=== PATIENT | female | born 1965 | race Caucasian/White ===

== ENCOUNTER 2017-02-22 20:42 | Emergency (ER) | payer MEDICARE ==
[~2017-02-22] VITALS: Ht 160 cm; Wt 108.9 kg
--- NOTE | 2017-02-22 23:54 | Emergency Room Report ---
History of Present Illness Time Seen by [id number] Presenting Problem in Triage Pt arrived:Walked Presenting Problem:LEFT SHOULDER PAIN STARTED 2-3 DAYS AGO. PT TRIAGED FOR DECISION BUT UPON ARRIVAL TO [facility] PT ADVISES THAT SHE HAD A FISTULA PLACED IN THE LT ARM ON 02/04/17 Onset of symptoms date/time:02/20/1709/03/699 or onset unknown for:MEDICAL HX UNKNOWN Treatment Prior to Arrival: PT SENT FROM [facility] APPLICATIONS ARCHITECT Provided by:NURSE Sepsis Risk Assessment: Temp: 98.0 B/P: 143/77 MAP: 90 Pulse: 70 Resp: 20 Recent fever? N Clinical Suspician of Infection? N Mental Status: 1 - Regular (Normal Baseline) Sepsis Risk:Low Sepsis Risk Have you (or family members/close friends) recently traveled outside the [place]? N If Yes, where/when: Have you had exposure to infectious disease within the past month? N TB? Other? Specify: Source patient, RN notes reviewed, family, old records Exam Limitations no limitations Comment pt with dialysis shunt lt upper ext 02/03 and over the last 2 days has pain lt shoulder with swelling worse with cough - no rash and no hemoptysis Cardiac Chest Pain Chest pain indicative of cardiac No Timing/Duration this evening Severity moderate ALLERGIES Coded Allergies: amoxicillin (Mild, 02/22/17) latex (Mild, 02/22/17) naproxen (From ALEVE) (Mild, 02/22/17) History Medical History General CAD? No Angina: No OR: No Hypertension? Yes Hyperlipidemia? Yes CHF? No DVT? No PE? No COPD? Yes Asthma? No Anemia? No GERD? No Gastric ulcers? No GI Bleed? No Hernia? No Thyroid Problems? No Hypothyroidism? No CVA? No Seizures? No Diabetes? Yes Insulin Dependent: No Insulin Pump: No Home FSBS? Yes Renal Insuffiency? No End Stage Renal Disease? No UTI? No Stones? No BPH? No GB Disease: No Nephritic Syndrome? No Asplenia? No Hepatitis? No Sickle Cell Disease? No Arthritis? No Migraines? No Cataracts? No Glaucoma? No MRSA? No HIV? No TB? No Anxiety? No Depression? No Cancer? No More? 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 Respiratory cough, shortness of breath, denies wheezing Cardiovascular denies chest pain, denies syncope Gastrointestinal denies abdominal pain, denies diarrhea, denies vomiting Genitourinary denies: dysuria, frequency, hesitancy, hematuria. Musculoskeletal denies back pain, denies joint pain, denies neck pain Skin denies rash Psychiatric/Neurological denies seizure Comment recent fisutla lt upper ext Physical Exam Vital Signs Vital Signs Date Time Temp Pulse Resp B/P Pulse O2 O2 Flow FiO2 Ox Delivery Rate 02/23 0112 98.0 65 16 140/74 96 02/23 0045 16 02/22 2327 98.0 70 20 143/77 96 02/22 2115 98.0 71 20 129/71 96 02/22 2111 98.0 71 20 129/71 96 02/22 2050 98.0 71 20 129/71 96 - WBC >12,000 or <4,000 or 10% bands? 2 or more SIRS Criteria Met? B/P:143/77 MAP:90 Creatinine >2.0? UA output<0.5ml/kg/hr for 2 hrs? Platelet count >100,000? Lactate >2.0mmol/1? INR >1.2 or PTT > than 60 sec? Evidence of Organ Dysfunction? Provider documented clinical suspician of infection? N Sepsis Criteria Count: 1 Sepsis Risk: Low Sepsis Risk General Appearance no apparent distress Eye Exam - bilateral eye PERRL, bilateral eye EOMI Ear, Nose, Throat normal ENT inspection Neck supple Respiratory Status No: respiratory distress. Lung Sounds bilateral: rhonchi, wheezing. 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 No Results/Orders Laboratory Tests 02/23/17 0004: Sodium 141, Potassium 3.9, Chloride 106, Carbon Dioxide 23, BUN 41 H, Creatinine 3.6 H, Estimated Creat Clear 31 L, Estimated GFR (MDRD) 13 *L, Glucose 131 H, Calcium 8.5, Total Bilirubin 0.2, AST 22, ALT 39, Alkaline Phosphatase 94, Troponin I < 0.02, Total Protein 7.7, Albumin 3.3 L, Globulin 4.4 H, Albumin/Globulin Ratio 0.8 L, D-Dimer 1060 *H, WBC 10.1, RBC 3.92 L, Hgb 11.6 L, Hct 37.0, MCV 94.4, RDW 13.5, Plt Count 395, MPV 7.6, Gran % 65.5, Gran # 6.6, Lymphocytes % 23.6, Monocytes % 6.0, Eosinophils % 4.4, Basophils % 0.6, Lymphocytes # 2.4, Monocytes # 0.6, Eosinophils # 0.4, Basophils # 0.1, PUBS MCHC 31.4 L, MCH 29.6 Current Medication Orders Sig/Lisandro Start time Last Medication Dose Route Stop Time Status Admin Acetaminophen/ 1 RANDALL ONCE ONE 02/23 115 DC 02/23 Codeine Phosphate PO 02/23 Acetaminophen/ 0 .STK-MED ONE 02/23 115 DC Codeine Phosphate PO Enoxaparin Sodium 100 MG ONCE ONE 02/23 115 DC 02/23 SC 02/23 Enoxaparin Sodium 0 .STK-MED ONE 02/23 115 DC SC Albuterol 0 .STK-MED ONE 02/23 46 DC INH Albuterol 2.5 MG ONCE ONE 02/23 45 DC 02/23 INH 02/23 Hydrocodone Bitart/ 1 TAB ONCE ONE 02/23 45 DC 02/23 Acetaminophen PO 02/23 Hydrocodone Bitart/ 0 .STK-MED ONE 02/23 45 DC Acetaminophen PO Orders Procedure Date/time Status RT REQUEST ALBUTEROL NEB 02/23 42 Active 12 LEAD EKG-RADHA (INITIAL) 02/22 2354 Active ELECTROCARDIOGRAM REQUEST 02/22 2354 Active CHEST(2 VIEWS-NOT PORTABLE) 10/06 2354 Active TROPONIN I 02/22 2354 Complete D-DIMER 02/22 2354 Complete COMPLETE METABOLIC PANEL 02/22 2354 Complete CBC WITH AUTO DIFF 02/22 2354 Complete [id number] VIEWS 02/22 2121 Active CM/EKG CM/box loader Rhythm Normal Sinus Rhythm EKG non-spec. ST/Twave chgs XRAY/CT/US XRAY/CT/US XRAY chest XR interpretation by reviewed by me Xray Results abnormal (chronic changes) Departure Departure Time of Disposition 0111 Disposition DC Home or Self Care(routine) Clinical Impression Primary Impression: Upper extremity pain Qualifiers: Laterality: left Qualified Code: M79.602 - Pain in left arm Secondary Impressions: Elevated d-dimer, ESRD (end stage renal disease) Condition STABLE Patient Instructions Chronic Renal Failure Additional Instructions will get doppler in am and see pcp for follow up Discharge Counseling Counseled pt/family regarding diagnosis, test results, medications/RX, follow up needs ED Critical Care Critical Care No at 0124
--- NOTE | 2017-02-22 23:54 | Emergency Room Report ---
History of Present Illness Time Seen by [id number] Presenting Problem in Triage Pt arrived:Walked Presenting Problem:LEFT SHOULDER PAIN STARTED 2-3 DAYS AGO. 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 N Clinical Suspician of Infection? N Mental Status: 1 - Regular (Normal Baseline) Sepsis Risk:Low Sepsis Risk Have you (or family members/close friends) recently traveled outside the [place]? N If Yes, where/when: Have you had exposure to infectious disease within the past month? N TB? Other? Specify: Source patient, RN notes reviewed, family, old records Exam Limitations no limitations Comment pt with dialysis shunt lt upper ext 02/03 and over the last 2 days has pain lt shoulder with swelling worse with cough - no rash and no hemoptysis Cardiac Chest Pain Chest pain indicative of cardiac No Timing/Duration this evening Severity moderate ALLERGIES Coded Allergies: amoxicillin (Mild, 02/22/17) latex (Mild, 02/22/17) naproxen (From ALEVE) (Mild, 02/22/17) History Medical History General CAD? No Angina: No MS: No Hypertension? Yes Hyperlipidemia? Yes CHF? No DVT? No PE? No COPD? Yes Asthma? No Anemia? No GERD? No Gastric ulcers? No GI Bleed? No Hernia? No Thyroid Problems? No Hypothyroidism? No CVA? No Seizures? No Diabetes? Yes Insulin Dependent: No Insulin Pump: No Home FSBS? Yes Renal Insuffiency? No End Stage Renal Disease? No UTI? No Stones? No BPH? No GB Disease: No Nephritic Syndrome? No Asplenia? No Hepatitis? No Sickle Cell Disease? No Arthritis? No Migraines? No Cataracts? No Glaucoma? No MRSA? No HIV? No TB? No Anxiety? No Depression? No Cancer? No More? 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 Respiratory cough, shortness of breath, denies wheezing Cardiovascular denies chest pain, denies syncope Gastrointestinal denies abdominal pain, denies diarrhea, denies vomiting Genitourinary denies: dysuria, frequency, hesitancy, hematuria. Musculoskeletal denies back pain, denies joint pain, denies neck pain Skin denies rash Psychiatric/Neurological denies seizure Comment recent fisutla lt upper ext Physical Exam Vital Signs Vital Signs Date Time Temp Pulse Resp B/P Pulse O2 O2 Flow FiO2 Ox Delivery Rate 02/23 0112 98.0 65 16 140/74 96 02/23 0045 16 02/22 2327 98.0 70 20 143/77 96 02/22 2115 98.0 71 20 129/71 96 02/22 2111 98.0 71 20 129/71 96 02/22 2050 98.0 71 20 129/71 96 - WBC >12,000 or <4,000 or 10% bands? 2 or more SIRS Criteria Met? B/P:143/77 MAP:90 Creatinine >2.0? UA output<0.5ml/kg/hr for 2 hrs? Platelet count >100,000? Lactate >2.0mmol/1? INR >1.2 or PTT > than 60 sec? Evidence of Organ Dysfunction? Provider documented clinical suspician of infection? N Sepsis Criteria Count: 1 Sepsis Risk: Low Sepsis Risk General Appearance no apparent distress Eye Exam - bilateral eye PERRL, bilateral eye EOMI Ear, Nose, Throat normal ENT inspection Neck supple Respiratory Status No: respiratory distress. Lung Sounds bilateral: rhonchi, wheezing. 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 No Results/Orders Laboratory Tests 02/23/17 0004: Sodium 141, Potassium 3.9, Chloride 106, Carbon Dioxide 23, BUN 41 H, Creatinine 3.6 H, Estimated Creat Clear 31 L, Estimated GFR (MDRD) 13 *L, Glucose 131 H, Calcium 8.5, Total Bilirubin 0.2, AST 22, ALT 39, Alkaline Phosphatase 94, Troponin I < 0.02, Total Protein 7.7, Albumin 3.3 L, Globulin 4.4 H, Albumin/Globulin Ratio 0.8 L, D-Dimer 1060 *H, WBC 10.1, RBC 3.92 L, Hgb 11.6 L, Hct 37.0, MCV 94.4, RDW 13.5, Plt Count 395, MPV 7.6, Gran % 65.5, Gran # 6.6, Lymphocytes % 23.6, Monocytes % 6.0, Eosinophils % 4.4, Basophils % 0.6, Lymphocytes # 2.4, Monocytes # 0.6, Eosinophils # 0.4, Basophils # 0.1, PUBS MCHC 31.4 L, MCH 29.6 Current Medication Orders Sig/Lisandro Start time Last Medication Dose Route Stop Time Status Admin Acetaminophen/ 1 RANDALL ONCE ONE 02/23 115 DC 02/23 Codeine Phosphate PO 02/23 Acetaminophen/ 0 .STK-MED ONE 02/23 115 DC Codeine Phosphate PO Enoxaparin Sodium 100 MG ONCE ONE 02/23 115 DC 02/23 SC 02/23 Enoxaparin Sodium 0 .STK-MED ONE 02/23 115 DC SC Albuterol 0 .STK-MED ONE 02/23 46 DC INH Albuterol 2.5 MG ONCE ONE 02/23 45 DC 02/23 INH 02/23 Hydrocodone Bitart/ 1 TAB ONCE ONE 02/23 45 DC 02/23 Acetaminophen PO 02/23 Hydrocodone Bitart/ 0 .STK-MED ONE 02/23 45 DC Acetaminophen PO Orders Procedure Date/time Status RT REQUEST ALBUTEROL NEB 02/23 42 Active 12 LEAD EKG-RADHA (INITIAL) 02/22 2354 Active ELECTROCARDIOGRAM REQUEST 02/22 2354 Active CHEST(2 VIEWS-NOT PORTABLE) 10/06 2354 Active TROPONIN I 02/22 2354 Complete D-DIMER 02/22 2354 Complete COMPLETE METABOLIC PANEL 02/22 2354 Complete CBC WITH AUTO DIFF 02/22 2354 Complete [id number] VIEWS 02/22 2121 Active CM/EKG CM/shank tapper Rhythm Normal Sinus Rhythm EKG non-spec. ST/Twave chgs XRAY/CT/US XRAY/CT/US XRAY chest XR interpretation by reviewed by me Xray Results abnormal (chronic changes) Departure Departure Time of Disposition 0111 Disposition DC Home or Self Care(routine) Clinical Impression Primary Impression: Upper extremity pain Qualifiers: Laterality: left Qualified Code: M79.602 - Pain in left arm Secondary Impressions: Elevated d-dimer, ESRD (end stage renal disease) Condition STABLE Patient Instructions Chronic Renal Failure Additional Instructions will get doppler in am and see pcp for follow up Discharge Counseling Counseled pt/family regarding diagnosis, test results, medications/RX, follow up needs ED Critical Care Critical Care No at 0124
[2017-02-23 00:15] LABS: HEMOGLOBIN 11.6 g/dL (12.2-16.2); LYMPH # 2.4 K/mm3 (0.7-4.5); LYMPH % 23.6 % (10-50.0)
[2017-02-23 00:31] LABS: BUN 41 mg/dL (7-18)
[2017-02-23 00:32] LABS: GFR (ESTIMATED) 13 ML/MIN (59-)
[2017-02-23 01:29] VITALS: BP 140/74
--- NOTE | 2017-02-23 09:59 | RADIOLOGY REPORT PS360 ---
[id number] VIEWS COMPARISON: PA and lateral chest 02/23/2017 HISTORY: Left shoulder pain TECHNIQUE: 4 views left shoulder FINDINGS: The clavicle is intact. There is minor degenerative change of the AC joint with spurring superiorly. The humeral head and glenoid appear normal and there are no soft tissue calcifications. IMPRESSION: Minor degenerative change of the AC joint otherwise negative left shoulder
--- NOTE | 2017-02-23 11:23 | RADIOLOGY REPORT PS360 ---
CHEST(2 VIEWS-NOT PORTABLE) COMPARISON: None HISTORY: Smoking history, cough TECHNIQUE: PA and lateral chest FINDINGS: The lung thurston are well expanded and appear clear of infiltrate. There is minimal blunting of the left costo phrenic angle. Cardiac size is normal and the vascularity is normal. There are minor degenerative changes lower thoracic spine. IMPRESSION: Nonacute chest findings
--- OUTSIDE RECORDS SUMMARY | 2017-03-01 10:36 | External Medical Summary Rpt | CCD ---
Author Author , [facility] Organization [facility] Address Unknown Phone [email or web address] Immunization Name Date Rout CVX Reac Dose Comm Prov Is Faci e tion ent ider Refu lity Give sed n Hep 10-0 43 999 Hist H201 No H201 B, 2-20 oric adul 08 al t Info rmat ion - Sour ce Unsp ecif ied Hep 03-1 43 999 Hist H201 No H201 B, 4-20 oric adul 08 al t Info rmat ion - Sour ce Unsp ecif ied Hep 02-0 43 999 Hist H201 No H201 B, 5-20 oric adul 08 al t Info rmat ion - Sour ce Unsp ecif ied
--- OUTSIDE RECORDS SUMMARY | 2017-03-01 10:36 | External Medical Summary Rpt | CCD ---
Author Author , [facility] Organization [facility] Address Unknown Phone josé Immunization Name Date Rout CVX Reac Dose [...]
--- OUTSIDE RECORDS SUMMARY | 2017-03-01 10:38 | External Medical Summary Rpt ---
Author Author OLIVERLILLY Waterman, [employer] Address Unknown Phone Unavailable Payers Section Payer Plan Name Group ID Member ID Coverage Coverage Start End Date Date [employer] 1810 [id number] No No Claims 00 informati informati Office on in on in source source data data Results Fibrin D-dimer FEU [Mass/volume] in Platelet poor plasma Observa Value Referen Units Interpr Notes Date tion ce etation Range Fibrin 0 - 400 ng/mL High Feb 23 D-dimer alert NOTIFICAT 2016 FEU ION 12:04 AM [Mass/vol RESULT ume] in The Platelet D-Dimer poor values plasma are presented in units of mass(ng/m L) ofD-Dimer units(DDU ).This test has been FDA approved as an aid in the assessmen tand evaluatio n of suspected DIC, and thromboem bolic eventsinc luding PE and DVT. However, it does not have approvalf or cut-off values for the exclusion of these condition s. CBC W Auto Differential panel in Blood Observa Value Referen Units Interpr Notes Date ti ce etation Range Basophils 0 - 0.2 K/MM3 Normal No Feb 232016 [#/volume on in 12:04 AM ] in source Blood by data Automated count Basophils 0.1 - 2.0 % Normal No Feb 232016 leukocyte on in 12:04 AM s in source Blood by data Automated count Eosinophi 0.0 - 0.4 K/mm3 Normal No Feb 23 ls informati 2016 [#/volume on in 12:04 AM ] in source Blood by data Automated count Eosinophi 0.1 - % Normal No Feb 23 ls/100 12.0 inform2016 leukocyte on in 12:04 AM s in source Blood by data Automated count Granulocy 1.8 - 7.8 K/mm3 Normal No Feb 23 fadia inform2016 [#/volume on in 12:04 AM ] in source Blood by data Automated count Granulocy 37.0 - % Normal No Feb 23 fadia/100 80.0 2016 leukocyte on in 12:04 AM s in source Blood by data Automated count Hematocri 37.0 - % Normal No Feb 23 t [Volume 47.0 informati 2016 on in 12:04 AM Fraction] source of Blood data Hemoglobi 12.2 - g/dL Low No Feb 23 n 16.2 informati 2016 [Mass/vol on in 12:04 AM ume] in source Blood data Lymphocyt 0.7 - 4.5 K/mm3 Normal No Feb 23 es inform2016 [#/volume on in 12:04 AM ] in source Unspecifi data ed specimen by Automated count Lymphocyt 10 - 50.0 % Normal No Feb 23 es inform2016 [#/volume on in 12:04 AM ] in source Unspecifi data ed specimen by Automated count Erythrocy 27 - 31.2 pg Normal No Feb 23 te mean inform2016 corpuscul on in 12:04 AM ar source hemoglobi data n [Entitic mass] Erythrocy 31.8 - g/dl Low No Feb 23 te mean 35.4 inform2016 corpuscul on in 12:04 AM ar source hemoglobi data n concentra tion [Mass/vol ume] by Automated count Erythrocy 82.2 - fl Normal No Feb 23 te mean 97.8 informati 2016 corpuscul on in 12:04 AM ar volume source [Entitic data volume] by Automated count Monocytes 0.1 - 1.0 K/mm3 Normal No Feb 232016 [#/volume on in 12:04 AM ] in source Blood by data Automated count Monocytes 1.7 - 9.3 % Normal No Feb 23 /100 inform 2017 leukocyte on in 12:04 AM s in source Blood by data Automated count Platelet 7.4 - fl Normal No Feb 23 mean 10.4 informati 2016 volume on in 12:04 AM [Entitic source volume] data in Blood by Automated count Platelets 142 - 424 K/mm3 Normal No Feb 23 inform2016 [#/volume on in 12:04 AM ] in source Blood data Erythrocy 4.2 - 5.4 M/mm3 Low No Feb 23 fadia informati 2016 [#/volume on in 12:04 AM ] in source Amniotic data fluid Erythrocy 11.5 - % Normal No Feb 23 te 17.5 informati 2017 distribut on in 12:04 AM ion width source [Entitic data volume] by Automated count Leukocyte 4.8 - K/MM3 Normal No Oct 7 s 10.8 informati 2016 [#/volume on in 12:04 AM ] in source Blood data DIAGBDIG/C Observa Value Referen Units Interpr Notes Date tion ce etation Range TEXT \\.br\\Pa No No No No Jan 21 DIAGNOS tient : informa informa informa informa 2016 IS tion in tion in tion in ti in 10:42 [facility], source source source source AM ROBB data data data data 3 Visit Type : REG CLI\\.br \\ : [id number] Rm/Bed :\\.br\\A ge/Sex : 51/F\\.b r\\\\.br\\ Orderin g Physici an : Betina Mittal DO Tech : Maye Bragg\\.b r\\Acces irene # : [id number] Time In : 927\\.b r\\Categ ory: MAMMOGR APHY Time Out :\\.br\\_ \\.br\\\\. br\\Date : 7\\.br\\E XAMINAT ION:\\.b r\\DIAGN OSTIC DIGITAL BILAT W/CAD MIRA\\.br \\\\.br\\I NDICATI ON:\\.br \\DIAGNO STIC DIGITAL BILAT W/CAD\\. br\\\\.br \\TECHNI QUE:\\.b r\\Digit al diagnos tic MLO and CC project ions of both breasts were obtaine d.\\.br\\ \\.br\\Im ages were process ed by the iCAD (Comput er Aided Detecti on) system. \\.br\\\\. br\\KOLE ST COMPOSI TION: Pattern B scatter ed fibrogl andular densiti es\\.br\\ \\.br\\CO MPARISO N:\\.br\\ None.\\. br\\\\.br \\FINDIN GS:\\.br \\There is no definit e mammogr aphic correla te to the palpabl e abnorma lity within the right breast. \\.br\\On ly fatty tissues demonst rated deep to the skin marker at the 3 o'clock positio n within the right\\. br\\kole st. Ultraso und right breast in the same locatio n demonst rates a roughly 2.5 cm well-\\. br\\circ umscrib ed mass within the subcuta neous fat which is isoecho ic to adjacen t fatty tissue. The\\.br \\overal l appeara nce is compati ble with a lipoma. No suspici ous groups of calcifi cations or areas of\\.br\\ archite ctural distort ion are identif ied. There is no evidenc e of skin thicken ing or nipple\\ .br\\ret raction .\\.br\\\\ .br\\IMP RESSION :\\.br\\\\ .br\\\\.b r\\BI-RA DS CATEGOR Y: 2- Benign. \\.br\\\\. br\\A reminde r letter for the patient 's next exam will be sent from the [facility] and a\\.br\\l vinh explain ing the results of this exam will be sent to the patient in lay termino logy.\\. br\\\\.br \\\\.br\\ BRRLIM Observa Value Referen Units Interpr Notes Date tion ce etation Range TEXT \\.br\\Pa No No No No Feb 07 DIAGNOS tient : informa informa informa informa 2017 IS tion in tion in tion in tion in 10:39 [facility], source source source source AM ROBB data data data data 3 Visit Type : REG CLI\\.br \\ : [phone] [id number] Rm/Bed :\\.br\\A ge/Sex : 51/F\\.b r\\\\.br\\ Orderin g Physici an : Betina Mittal DO Tech : Miley Toribio\\ .br\\Acc ession # : [id number] Time In :\\.br\\C ategory : ULTRASO UND Time Out :\\.br\\_ \\.br\\\\. br\\Date : 7\\.br\\E XAMINAT ION:\\.b r\\BREAS T, RIGHT LIMITED US\\.br\\ \\.br\\IN DICATIO N:\\.br\\ RIGHT BREAST LUMP\\.b r\\\\.br\\ ADDITIO NAL HISTORY :\\.br\\\\ .br\\MILLI HNIQUE: \\.br\\Li mited sonogra phic imaging the right breast was perform ed at the site of palpabl e abnorma lity as\\.br\\ indicat ed by the patient .\\.br\\\\ .br\\COM PARISON :\\.br\\D iagnost ic mammogr am perform ed on 017\\.br \\\\.br\\F INDINGS :\\.br\\A t the site of palpabl e abnorma lity within medial aspect of the right breast at the 3:00 positio n\\.br\\t here is a 2.0 x 1.1 cm mass which is isoecho ic to adjacen t fat. The appeara nce is compati ble with\\.b r\\a lipoma. No additio nal masses or fluid collect ions are demonst rated in the region of palpabl e\\.br\\a bnormal ity.\\.b r\\\\.br\\ IMPRESS ION:\\.b r\\\\.br\\ \\.br\\1. 2.0 x 1.1 cm mass at the site of palpabl e abnorma lity within the 3 o'clock positio n within the\\.br \\right breast. The mass is isoecho ic to adjacen t fat. The overall appeara nce is compati ble with a\\.br\\l ipoma.\\ .br\\2. BI-RADS CATEGOR Y: 2 - Benign. \\.br\\\\. br\\\\.br \\ MRI-L SPINE W/O CONTRAST Observa Value Referen Units Interpr Notes Date tion ce etation Range TEXT THE No No No No Mar 05 DIAGNOS MEDICAL informa informa informa informa 2016 IS tion in tion in tion in tion in 5:55 PM [facility]\\ source source source source .br\\Dep data data data data artment of Diagnos tic Imaging \\.br\\Pa tient: AUREAROBB WHITE S* Unit #: [id number] Ord Doctor: BIRGIT BRIGGS\\.b r\\ [id number] Date of Exam: 6\\.br\\D OB: 965 Age: 50 Sex: F Room/Be d: Locatio n: MRI\\.br \\ Adm: 6 Patient Status: REG CLI\\.br \\Clinic al History : LOW BACK PAIN/WE AKNESS\\ .br\\Exa m # [id number]\\.br\\ Type/Ex am: MAGNETI C RESONAN CE IMAGING / MRI-L SPINE W/O CONTRAS T\\.br\\C urrent Report Status: Signed\\ .br\\Cli nical history : Low back pain and weaknes s.\\.br\\ Compari son: None.\\. br\\Tech nique: Sagitta l T1, T2, STIR, axial T1 and T2-weig hted images were\\.b r\\obtai bita through the lumbar spine.\\ .br\\Fin dings: Normal alignme nt of the lumbar spine is seen. Vertebr al body\\.b r\\heigh ts, bone marrow signal, disc materia l prevert ebral soft tissues \\.br\\ar e intact. Slight heterog eneous signal of the bone marrow but proctor\\ .br\\sig nal is higher than the disc materia l in T1-weig hted images. Conus\\. br\\medu llaris is seen at the level of T12-L1 area. There is slight\\ .br\\cur vature of the cervica l spine to the left side.\\. br\\At L1-2: Unremar kable.\\ .br\\At L2-3: Unremar kable\\. br\\At L3-4: Small disc protrus ion in the left neural foramin a encroac tunde\\.b r\\on the left L3 nerve root. Central spinal canal is intact. \\.br\\At L4-5: Mild facet joint disease . Mild asymmet ry of the disc to the\\.br \\left extrafo raminal region abuttin g the left elbow L4 nerve root.\\. br\\At L5-S1: Unremar kable.\\ .br\\The uterus is enlarge d with possibl e fibroid s in the fundus of the\\.br \\uterus .\\.br\\I mpressi on: Small disc protrus ion to the left neural foramin a at L3-4\\.b r\\and L4-5 encroac tunde on the left L3 and L4 nerve roots. Central spinal\\ .br\\can al is normal. Possibl e fibroid in the fundus of the uterus. \\.br\\Re ported By: KATHERINE HEAD M.D.\\.b r\\Alissa d By: KATHERINE HEAD M.D.\\.b r\\Alissa d Date/Ti me: 6 1804 FLAT\\T\\UPRIGHT OR DECUB ABD Observa Value Referen Units Interpr Notes Date tion ce etation Range TEXT THE No No No No Jul 10 DIAGNOS MEDICAL informa informa informa informa 2015 IS tion in tion in tion in tion in 10:06 [facility]\\ source source source source AM .br\\Dep data data data data artment of Diagnos tic Imaging \\.br\\Pa tient: ROBB VILLAR* Unit #: [id number] Ord Doctor: DARRIN MCMANUS M.D.\\.b r\\ [id number] Date of Exam: 6\\.br\\D OB: 965 Age: 49 Sex: F Room/Be d: 4A04- Locatio n: 4A\\.br\\ Adm: 6 Patient Status: ADM IN\\.br\\ Clinica l History : explora tory lap with lysis of adhesio ns\\.br\\ Exam # [id number]\\.br\\ Type/Ex am: RADIOLO GY-DIAG NOSTIC/ FLAT \\T\\ UPRIGHT OR DECUB ABD\\.br \\Curren t Report Status: Signed\\ .br\\Cli nical history : Lysis of adhesio n.\\.br\\ Compari son with the previou s exam dated 6.\\.br\\ Finding s: Fluid and air are seen in the small bowel and colon.\\ .br\\Mul tiple fluid levels are seen in the left mid abdomen . Air is seen\\.b r\\down to the rectum. No evidenc e of free air is seen under the\\.br \\diaphr agm. Small calcifi cation is seen in the pelvis. \\.br\\Im pressio n: Air is seen in the large and small bowel with multipl e\\.br\\f luid levels may be due to partial obstruc tion. The numbers of the\\.br \\fluid levels are decreas ed relativ e to the previou s exam as well as\\.br\\ amount of fluid.\\ .br\\Rep orted By: KATHERINE HEAD M.D.\\.b r\\Alissa d By: KATHERINE HEAD M.D.\\.b r\\Alissa d Date/Ti me: 6 1013 BASIC METABOLIC PANEL Observa Value Referen Units Interpr Notes Date tion ce etation Range GLUCOSE 146 70 - MG/DL High Fasting Jul 27 110 2015 glucose 6:33 AM level > 126 mg/dl over multipl e tests isdiagn ostic for diabete s. BLOOD 28 7 - 22 MG/DL High No Jul 27 UREA informa 2016 NITROGE tion in 6:33 AM N source data CREATIN 2.2 0.4 - MG/DL High No Jul 27 INE 1.1 informa 2016 tion in 6:33 AM source data ESTIMAT 46 87 - ML/MIN Low This is Jul 27 ED 107 an 2016 CREATIN ESTIMAT 6:33 AM INE E based CLEARAN on the CE Cockcro ft-Chetna t equatio n.Kaylie l values are for adults 40 years of age and younger .Creati nine clearan ce decreas es with age. Some medicat ionsreq uire a further adjustm ent for body surface area. SODIUM 143 136 - MMOL/L Normal No Jul 27 146 informa 2015 tion in 6:33 AM source data POTASSI 3.5 3.3 - MMOL/L Normal No Jul 27 UM 5.0 informa 2016 tion in 6:33 AM source data CHLORID 105 98 - MMOL/L Normal No Jul 27 E 108 informa 2016 tion in 6:33 AM source data CARBON 31.3 21.0 - MMOL/L Normal No Jul 27 DIOXIDE 32.0 informa 2016 tion in 6:33 AM source data CALCIUM 7.6 8.3 - MG/DL Low No Jul 27 9.7 informa 2015 tion in 6:33 AM source data PHOSPHORUS Observa Value Referen Units Interpr Notes Date tion ce etation Range PHOSPHO 2.8 2.3 - MG/DL Normal No Jul 27 AUNG 4.3 informa 2016 tion in 6:35 AM source data MAGNESIUM Observa Value Referen Units Interpr Notes Date tion ce etation Range MAGNESI 2.0 1.5 - MG/DL Normal No Jul 27 UM 2.3 informa 2016 tion in 6:33 AM source data BASIC METABOLIC PANEL Observa Value Referen Units Interpr Notes Date tion ce etation Range GLUCOSE 136 70 - MG/DL High Fasting Jul 26 110 2016 glucose 9:02 AM level > 126 mg/dl over multipl e tests isdiagn ostic for diabete s. BLOOD 26 7 - 22 MG/DL High No Jul 26 UREA informa 2016 NITROGE tion in 9:02 AM N source data CREATIN 2.0 0.4 - MG/DL High No Jul 26 INE 1.1 informa 2016 tion in 9:02 AM source data ESTIMAT 51 87 - ML/MIN Low This is Jul 26 ED 107 an 2016 CREATIN ESTIMAT 9:02 AM INE E based CLEARAN on the CE Cockcro ft-Chetna t equatio n.Kaylie l values are for adults 40 years of age and younger .Creati nine clearan ce decreas es with age. Some medicat ionsreq uire a further adjustm ent for body surface area. SODIUM 143 136 - MMOL/L Normal No Jul 9 146 informa 2016 tion in 9:02 AM source data POTASSI 3.5 3.3 - MMOL/L Normal No Jul 9 UM 5.0 informa 2016 tion in 9:02 AM source data CHLORID 107 98 - MMOL/L Normal No Jul 9 E 108 informa 2016 tion in 9:02 AM source data CARBON 31.1 21.0 - MMOL/L Normal No Jul 9 DIOXIDE 32.0 informa 2016 tion in 9:02 AM source data CALCIUM 7.4 8.3 - MG/DL Low No Jul 9 9.7 informa 2016 tion in 9:02 AM source data PHOSPHORUS Observa Value Referen Units Interpr Notes Date tion ce etation Range PHOSPHO 2.2 2.3 - MG/DL Low No Jul 9 AUNG 4.3 informa 2016 tion in 9:02 AM source data MAGNESIUM Observa Value Referen Units Interpr Notes Date tion ce etation Range MAGNESI 1.9 1.5 - MG/DL Normal No Jul 9 UM 2.3 informa 2016 tion in 9:02 AM source data BASIC METABOLIC PANEL Observa Value Referen Units Interpr Notes Date tion ce etation Range SPECIMEN DRAWN FROM LINE BY KRISTINA GLUCOSE 182 70 - MG/DL High Fasting Jul 25 110 2016 glucose 5:49 AM level > 126 mg/dl over multipl e tests isdiagn ostic for diabete s. BLOOD 24 7 - 22 MG/DL High No Jul 8 UREA informa 2016 NITROGE tion in 5:49 AM N source data CREATIN 2.1 0.4 - MG/DL High No Jul 8 INE 1.1 informa 2016 tion in 5:49 AM source data ESTIMAT 48 87 - ML/MIN Low This is Jul 8 ED 107 an 2016 CREATIN ESTIMAT 5:49 AM INE E based CLEARAN on the CE Cockcro ft-Chetna t equatio n.Kaylie l values are for adults 40 years of age and younger .Creati nine clearan ce decreas es with age. Some medicat ionsreq uire a further adjustm ent for body surface area. SODIUM 141 136 - MMOL/L Normal No Jul 8 146 informa 2016 tion in 5:49 AM source data POTASSI 3.3 3.3 - MMOL/L Normal No Jul 8 UM 5.0 informa 2016 tion in 5:49 AM source data CHLORID 107 98 - MMOL/L Normal No Jul 8 E 108 informa 2016 tion in 5:49 AM source data CARBON 26.5 21.0 - MMOL/L Normal No Jul 8 DIOXIDE 32.0 informa 2016 tion in 5:49 AM source data CALCIUM 7.7 8.3 - MG/DL Low No Jul 8 9.7 informa 2016 tion in 5:49 AM source data PHOSPHORUS Observa Value Referen Units Interpr Notes Date tion ce etation Range SPECIMEN DRAWN FROM LINE BY RN PHOSPHO 2.2 2.3 - MG/DL Low No Jul 8 AUNG 4.3 informa 2015 tion in 5:49 AM source data MAGNESIUM Observa Value Referen Units Interpr Notes Date tion ce etation Range SPECIMEN DRAWN FROM LINE BY RN MAGNESI 2.0 1.5 - MG/DL Normal No Jul 8 UM 2.3 informa 2016 tion in 5:49 AM source data COMP. METABOLIC PANEL Observa Value Referen Units Interpr Notes Date tion ce etation Range GLUCOSE 150 70 - MG/DL High Fasting Jul 7 110 2016 glucose 7:21 AM level > 126 mg/dl over multipl e tests isdiagn ostic for diabete s. BLOOD 20 7 - 22 MG/DL Normal No Jul 7 UREA informa 2016 NITROGE tion in 7:21 AM N source data CREATIN 2.0 0.4 - MG/DL High No Jul 7 INE 1.1 inform 2016 tion in 7:21 AM source data ESTIMAT 50 87 - ML/MIN Low This is Jul 7 ED 107 an 2016 CREATIN ESTIMAT 7:21 AM INE E based CLEARAN on the CE Cockcro ft-Chetna t equatio n.Kaylie l values are for adults 40 years of age and younger .Creati nine clearan ce decreas es with age. Some medicat ionsreq uire a further adjustm ent for body surface area. SODIUM 147 136 - MMOL/L High No Jul 7 146 informa 2016 tion in 7:21 AM source data POTASSI 3.1 3.3 - MMOL/L Low No Jul 7 UM 5.0 informa 2016 tion in 7:21 AM source data CHLORID 115 98 - MMOL/L High No Jul 7 E 108 inform2015 tion in 7:21 AM source data CARBON 24.8 21.0 - MMOL/L Normal No Jul 7 DIOXIDE 32.0 informa 2015 tion in 7:21 AM source data ALBUMIN 2.0 3.6 - G/DL Low No Jul 7 4.5 inform2015 tion in 7:21 AM source data ALKALIN 76 34 - U/L Normal No Jul 7 E 102 2015 PHOSPHA tion in 7:22 AM TASE source data CALCIUM 7.3 8.3 - MG/DL Low No Jul 7 9.7 informa 2015 tion in 7:21 AM source data PROTEIN 6.2 6.7 - G/DL Low No Jul 7 , TOTAL 8.3 2015 SERUM tion in 7:21 AM source data SGOT 8 11 - 24 U/L Low No Jul 7 (AST) inform2015 tion in 7:21 AM source data BILIRUB 0.1 0 - 1.0 MG/DL Normal No Jul 7 IN, 2015 TOTAL tion in 7:22 AM source data SGPT 11 12 - 69 U/L Low No Jul 7 (ALT) inform2015 tion in 7:21 AM source data PHOSPHORUS Observa Value Referen Units Interpr Notes Date tion ce etation Range PHOSPHO 1.5 2.3 - MG/DL Low No Jul 7 AUNG 4.3 inform2015 tion in 7:21 AM source data MAGNESIUM Observa Value Referen Units Interpr Notes Date tion ce etation Range MAGNESI 2.3 1.5 - MG/DL Normal No Jul 7 UM 2.3 a 2015 tion in 7:21 AM source data CHEST, SINGLE VIEW Observa Value Referen Units Interpr Notes Date tion ce etation Range TEXT THE No No No No Jul 6 DIAGNOS MEDICAL informa informa informa informa 2016 IS tion in tion in tion in tion in 11:43 [facility]\\ source source source source AM .br\\Dep data data data data artment of Diagnos tic Imaging \\.br\\Pa tient: ROBB VILLAR S* Unit #: [id number] Ord Doctor: YUNG SALCEDO M.D.\\.b r\\ [id number] Date of Exam: 6\\.br\\D OB: 965 Age: 49 Sex: F Room/Be d: 4A04-1 Locatio n: 4A\\.br\\ Adm: 6 Patient Status: ADM IN\\.br\\ Clinica l History : SOA after surgery \\.br\\Ex am # [id number]\\.br\\ Type/Ex am: RADIOLO GY-DIAG NOSTIC/ CHEST, SINGLE VIEW\\.b r\\Curre nt Report Status: Signed\\ .br\\Com parison : Chest, single view 6.\\.br\\ History : Shortne ss of air after surgery .\\.br\\F indings : A single portabl e AP view of the chest was obtaine d.\\.br\\ Enteric tube appears to termina te just below the gastroe sophage al\\.br\\ junctio n with slight interva l withdra wal since the prior examina tion.\\. br\\The sidehol e is above the gastroe sophage al junctio n. A left subclav tal\\.br \\centra l venous line termina fadia at the cavoatr ial junctio n. There is\\.br\\ new bluntin g of the left costoph renic angle suggest cyrus of left pleural \\.br\\ef fusion. Heart size is stable. There is persist ent airspac e opacity \\.br\\in the left suprahi lar region mediall y. The right lung is clear.\\ .br\\Imp ression :\\.br\\1 . Enteric tube appears to have been withdra wn slightl y since the\\.br \\prior examina tion. This termina fadia just below the gastroe sophage al\\.br\\ junctio n with the sidehol e in the distal esophag us.\\.br \\2. Interva l develop ment of probabl e left pleural effusio n.\\.br\\ 3. Persist ent airspac e disease in the medial left suprahi lar region. \\.br\\Re ported By: CARRIE CARVALHO M.D.\\.b r\\Alissa d By: CARVALHO ,CARRIE D., M.D.\\.b r\\Alissa d Date/Ti me: 6 1151 COMP. METABOLIC PANEL Observa Value Referen Units Interpr Notes Date tion ce etation Range GLUCOSE 105 70 - MG/DL Normal Fasting Jul 6 110 2016 glucose 12:22 level PM > 126 mg/dl over multipl e tests isdiagn ostic for diabete s. BLOOD 20 7 - 22 MG/DL Normal No Mar 6 UREA informa 2016 NITROGE tion in 12:22 N source PM data CREATIN 2.0 0.4 - MG/DL High No Mar 6 INE 1.1 informa 2016 tion in 12:22 source PM data ESTIMAT 50 87 - ML/MIN Low This is Jul 6 ED 107 an 2016 CREATIN ESTIMAT 12:22 INE E based PM CLEARAN on the CE Cockcro ft-Chetna t equatio n.Kaylie l values are for adults 40 years of age and younger .Creati nine clearan ce decreas es with age. Some medicat ionsreq uire a further adjustm ent for body surface area. SODIUM 152 136 - MMOL/L High No Mar 6 146 informa 2016 tion in 12:22 source PM data POTASSI 3.5 3.3 - MMOL/L Normal No Jul 6 UM 5.0 informa 2016 tion in 12:22 source PM data CHLORID 118 98 - MMOL/L High No Jul 6 E 108 informa 2016 tion in 12:22 source PM data CARBON 23.5 21.0 - MMOL/L Normal No Jul 6 DIOXIDE 32.0 informa 2016 tion in 12:22 source PM data ALBUMIN 2.1 3.6 - G/DL Low No Mar 6 4.5 informa 2016 tion in 12:22 source PM data ALKALIN 80 34 - U/L Normal No Jul 6 E 102 informa 2016 PHOSPHA tion in 12:26 TASE source PM data CALCIUM 7.7 8.3 - MG/DL Low No Mar 6 9.7 informa 2016 tion in 12:22 source PM data PROTEIN 6.1 6.7 - G/DL Low No Jul 6 , TOTAL 8.3 informa 2015 SERUM tion in 12:22 source PM data SGOT 9 11 - 24 U/L Low No Jul 6 (AST) informa 2016 tion in 12:22 source PM data BILIRUB 0.2 0 - 1.0 MG/DL Normal No Mar 6 IN, inform 2016 TOTAL tion in 12:22 source PM data SGPT 13 12 - 69 U/L Normal No Jul 6 (ALT) inform2015 tion in 12:22 source PM data PHOSPHORUS Observa Value Referen Units Interpr Notes Date tion ce etation Range PHOSPHO 3.4 2.3 - MG/DL Normal No Jul 6 AUNG 4.3 inform2015 tion in 12:22 source PM data MAGNESIUM Observa Value Referen Units Interpr Notes Date tion ce etation Range MAGNESI 2.3 1.5 - MG/DL Normal No Jul 6 UM 2.3 inform2015 tion in 12:22 source PM data TRIGLYCERIDES Observa Value Referen Units Interpr Notes Date tion ce etation Range TRIGLYC 165 0 - 150 MG/DL High A Jul 23 ERIDES non-fas 2015 ting 12:22 specime PM n falsely elevate s and invalid ates testres ults for triglyc erides, VLDL, LDL, and coronar y riskfac tor. No referen ce ranges availab le for non-fas tingspe cimens. <150 = Normal1 50-199 = Borderl ine [id number] -499 = High>50 0 = Very High PREALBUMIN Observa Value Referen Units Interpr Notes Date tion ce etation Range PREALBU 11 17 - 38 MG/DL Low No Jul 6 MIN 2015 tion in 12:26 source PM data CHEST, SINGLE VIEW Observa Value Referen Units Interpr Notes Date tion ce etation Range TEXT THE No No No No Jul 4 DIAGNOS MEDICAL informa informa informa inform 2016 IS tion in tion in tion in tion in 3:54 PM [facility]\\ source source source source .br\\Dep data data data data artment of Diagnos tic Imaging \\.br\\Pa tient: ROBB VILLAR S* Unit #: [id number] Ord Doctor: DARRIN MCMANUS M.D.\\alton r\\ [id number] Date of Exam: 6\\.br\\D OB: 965 Age: 49 Sex: F Room/Be d: 4A04- Locatio n: 4A\\.br\\ Adm: 6 Patient Status: ADM IN\\.br\\ Clinica l History : POST OP\\.br\\ Exam # [id number]\\.br\\ Type/Ex am: RADIOLO GY-DIAG NOSTIC/ CHEST, SINGLE VIEW\\.b r\\Curre nt Report Status: Signed\\ .br\\Ind ication : Central line placeme nt.\\.br \\Techni que: Frontal portabl e chest radiogr aph obtaine d on 6.\\.br\\ Compari son: 6\\.br\\F indings :\\.br\\D istal tip of left central line is at the cavoatr ial junctio n. No\\.br\\ pneumot horax. Nonspec ific focal left supra hilar\\. br\\cons olidati on/atel ectasis . No effusio n. Heart size is normal. Bony\\.b r\\struc tures are intact. NG tube is again demonst rated.\\ .br\\Imp ression :\\.br\\1 . Distal tip of left central line is at the cavoatr ial junctio n. No\\.br\\ pneumot horax.\\ .br\\2. Nonspec ific focal left suprahi lar consoli dation/ atelect asis.\\. br\\Repo rted By: SAMMIE AMEZCUA M.D.\\.b r\\Alissa d By: SAMMIE AMEZCUA M.D.\\.b r\\Alissa d Date/Ti me: 6 1601 FLAT\\T\\UPRIGHT OR DECUB ABD Observa Value Referen Units Interpr Notes Date tion ce etation Range TEXT THE No No No No Mar 3 DIAGNOS MEDICAL informa informa informa informa 2016 IS tion in tion in tion in tion in 12:09 [facility]\\ source source source source PM .br\\Dep data data data data artment of Diagnos tic Imaging \\.br\\Pa tient: ROBB VILLAR* Unit #: [id number] Ord Doctor: DARRIN MCMANUS M.D.\\.b r\\ [id number] Date of Exam: 6\\.br\\D OB: 965 Age: 49 Sex: F Room/Be d: 4A04-1 Locatio n: 4A\\.br\\ Adm: 6 Patient Status: ADM IN\\.br\\ Clinica l History : small bowel obstruc tion, had bowel functio n\\.br\\E xam # [id number]\\.br\\ Type/Ex am: RADIOLO GY-DIAG NOSTIC/ FLAT \\T\\ UPRIGHT OR DECUB ABD\\.br \\Curren t Report Status: Signed\\ .br\\Ind ication : Small bowel obstruc tion.\\. br\\Flat and upright KUB of 6.\\.br\\ Compari son: 6.\\.br\\ Finding s:\\.br\\ Multipl e air-flu id levels within the mid abdomen and left upper\\. br\\quad rant with dilated loops of small bowel. Intralu piotr contras t is\\.br\\ seen within the nondist ended colon. Finding s suggest high-gr eliezer\\.br \\partia l small bowel obstruc tion. Distal tip of NG tube within the\\.br \\stomac h. No pneumop eritone um. Bony structu res are intact. \\.br\\Im pressio n:\\.br\\ Multipl e air-flu id levels within the mid abdomen and left upper\\. br\\quad rant with dilated loops of small bowel. Intralu piotr contras t is\\.br\\ seen within the nondist ended colon. Finding s suggest high-gr eliezer\\.br \\partia l small bowel obstruc tion.\\. br\\Repo rted By: SAMMIE AMEZCUA M.D.\\.b r\\Alissa d By: SAMMIE AMEZCUA M.D.\\.b r\\Alissa d Date/Ti me: 6 1216 CHEST, SINGLE VIEW Observa Value Referen Units Interpr Notes Date tion ce etation Range TEXT THE No No No No Mar 3 [facility]NOS MEDICAL informa informa informa informa 2016 IS tion in tion in tion in tion in 9:05 AM [facility]\\ source source source source .br\\Dep data data data data artment of Diagnos tic Imaging \\.br\\Pa tient: ROBB VILLAR S* Unit #: [id number] Ord Doctor: GUTIERREZ JAMES\\.br\\ [id number] Date of Exam: 6\\.br\\D OB: 965 Age: 49 Sex: F Room/Be d: 4A04- Locatio n: 4A\\.br\\ Adm: 6 Patient Status: ADM IN\\.br\\ Clinica l History : NG TUBE PLACEME NT\\.br\\ Exam # [id number]\\.br\\ Type/Ex am: RADIOLO GY-DIAG NOSTIC/ CHEST, SINGLE VIEW\\.b r\\Curre nt Report Status: Signed\\ .br\\Cli nical data: NG tube placeme nt.\\.br \\Compar paul: Small bowel series dated 6 and 2 view abdomen dated\\. br\\2015\\.b r\\Techn ique: Portabl e AP upright view of the upper abdomen and lower\\. br\\ches t was obtaine d.\\.br\\ Finding s: Stable bony element s and soft tissues . Dilated small bowel\\. br\\loop s suspect for small bowel obstruc tion. NG tube has been pulled\\ .br\\jameel k slightl y with the tip curled in the fundus of the stomach . This\\.b r\\can be advance d several centime ters of clinica lly indicat ed. Remaind er\\.br\\ the examina tion appears unchang ed.\\.br \\Impres irene:\\. br\\1. NG tube, tip coiled in the fundus of the stomach . This can be\\.br\\ advance d several centime ters if clinica lly indicat ed.\\.br \\2. Small bowel obstruc tion.\\. br\\Repo rted By: Lulú FU M.D.\\.b r\\Alissa d By: Lulú FU M.D.\\.b r\\Alissa d Date/Ti me: 6 0912 XRAY INTESTINE SERIES Observa Value Referen Units Interpr Notes Date tion ce etation Range TEXT THE No No No No Jul 2 DIAGNOS MEDICAL informa informa informa informa 2016 IS tion in tion in tion in tion in 8:42 AM [facility]\\ source source source source .br\\Dep data data data data artment of Diagnos tic Imaging \\.br\\Pa tient: ROBB VILLAR* Unit #: [id number] Ord Doctor: DARRIN MCMANUS M.D.\\.b r\\ [id number] Date of Exam: 6\\.br\\D OB: 965 Age: 49 Sex: F Room/Be d: 4A04-1 Locatio n: 4A\\.br\\ Adm: 6 Patient Status: ADM IN\\.br\\ Clinica l History : small bowel obstruc tion\\.b r\\Exam # [id number]\\.br\\ Type/Ex am: RADIOLO GY-DIAG NOSTIC/ XRAY INTESTI NE SERIES\\ .br\\Cur rent Report Status: Signed\\ .br\\Cli nical history : Small bowel obstruc tion.\\. br\\Comp arison with the CT scan dated 07/18/19 16.\\.br \\FINDIN GS: The prelimi nary film showed nasogas tric tube in the stomach .\\.br\\T he small bowel is distend ed by air. Moderat e residua l fecal materia l\\.br\\i s seen in the colon. Small amount of air is seen in the colon down to\\.br\\ the rectum. Gastrog rafin was given through the NG tube. The stomach \\.br\\wa s not distend ed. Small bowel loops are distend ed by contras t and\\.br \\transv erse diamete r of distend ed small bowel loops measure s 5 cm. The\\.br \\images were obtaine d after 5 hour last night and showed distent ion of\\.br\\ the small bowel loops and no evidenc e of contras t is seen in the right\\. br\\side of the colon. Images were obtaine d in the morning and showed\\ .br\\dis tention of the small bowel by contras t and no definit e Gastrog rafin\\. br\\is seen in the colon and the Gastrog rafin is faint and hard to\\.br\\ delinea te.\\.br \\Impres irene:\\. br\\Dist ention of the small bowel loops and no evidenc e of contras t is\\.br\\ seen in the colon, consist ent with small bowel obstruc tion..\\ .br\\Rep orted By: KATHERINE HEAD M.D.\\.b r\\Alissa d By: KATHERINE HEAD M.D.\\.b r\\Alissa d Date/Ti me: 6 0854 FLAT\\T\\UPRIGHT OR DECUB ABD Observa Value Referen Units Interpr Notes Date tion ce etation Range TEXT THE No No No No Jul 1 DIAGNOS MEDICAL informa informa informa informa 2016 IS tion in tion in tion in tion in 11:40 [facility]\\ source source source source AM .br\\Dep data data data data artment of Diagnos tic Imaging \\.br\\Pa tient: ROBB VILLAR S* Unit #: [id number] Ord Doctor: DARRIN MCMANUS M.D.\\.b r\\ [id number] Date of Exam: 6\\.br\\D OB: 965 Age: 49 Sex: F Room/Be d: 4A04-1 Locatio n: 4A\\.br\\ Adm: 6 Patient Status: ADM IN\\.br\\ Clinica l History : small bowel obstruc tion\\.b r\\Exam # [id number]\\.br\\ Type/Ex am: RADIOLO GY-DIAG NOSTIC/ FLAT \\T\\ UPRIGHT OR DECUB ABD\\.br \\Curren t Report Status: Signed\\ .br\\Com parison : 07/18/19 16\\.br\\ Indicat ion: Follow- up small bowel obstruc tion.\\. br\\Find ings: There is a nasogas tric tube which termina fadia within the\\.br \\stomac h. There is gaseous and fluid distent ion of mid abdomin al small\\. br\\matt l loops with air-flu id levels. There is gas and stool within the\\.br \\right colon through the transve rse colon. There is a paucity of distal\\ .br\\col onic gas. No evidenc e for pneumop eritone um.\\.br \\Blunti ng left costoph renic angle consist ent with small effusio n.\\.br\\ IMPRESS ION:\\.b r\\1. Small bowel obstruc tion. Given presenc e of gas within the proxima l\\.br\\t o mid colon, finding s are presuma kai incompl ete. The degree of\\.br\\ distent ion appears similar or slightl y worsene d since recent CT.\\.br \\2. Bluntin g left costoph renic angle suggest ing small effusio n.\\.br\\ Reporte d By: JANINE CHAVEZ M.D.\\.b r\\Alissa d By: JANINE CHAVEZ M.D.\\.b r\\Alissa d Date/Ti me: 6 1148 BASIC METABOLIC PANEL Observa Value Referen Units Interpr Notes Date tion ce etation Range GLUCOSE 96 70 - MG/DL Normal Fasting Jul 18 110 2015 glucose 7:48 AM level > 126 mg/dl over multipl e tests isdiagn ostic for diabete s. BLOOD 24 7 - 22 MG/DL High No Jul 18 UREA informa 2016 NITROGE tion in 7:48 AM N source data CREATIN 2.3 0.4 - MG/DL High No Jul 18 INE 1.1 informa 2016 tion in 7:48 AM source data ESTIMAT 45 87 - ML/MIN Low This is Jul 18 ED 107 an 2016 CREATIN ESTIMAT 7:48 AM INE E based CLEARAN on the CE Cockcro ft-Chetna t equatio n.Kaylie l values are for adults 40 years of age and younger .Creati nine clearan ce decreas es with age. Some medicat ionsreq uire a further adjustm ent for body surface area. SODIUM 143 136 - MMOL/L Normal No Jul 18 146 informa 2016 tion in 7:48 AM source data POTASSI 3.8 3.3 - MMOL/L Normal No Jul 1 UM 5.0 informa 2016 tion in 7:48 AM source data CHLORID 110 98 - MMOL/L High No Jul 1 E 108 informa 2016 tion in 7:48 AM source data CARBON 23.6 21.0 - MMOL/L Normal No Jul 1 DIOXIDE 32.0 informa 2016 tion in 7:48 AM source data CALCIUM 8.0 8.3 - MG/DL Low No Jul 18 9.7 informa 2016 tion in 7:48 AM source data AMYLASE Observa Value Referen Units Interpr Notes Date tion ce etation Range AMYLASE 43 20 - 95 U/L Normal No Jul 1 informa 2016 tion in 7:48 AM source data FLAT\\T\\UPRIGHT OR DECUB ABD Observa Value Referen Units Interpr Notes Date tion ce etation Range TEXT THE No No No No Jul 14 DIAGNOS MEDICAL informa informa informa informa 2016 IS tion in tion in tion in tion in 8:28 PM [facility]\\ source source source source .br\\Dep data data data data artment of Diagnos tic Imaging \\.br\\Pa tient: ROBB VILLAR S* Unit #: [id number] Ord Doctor: DARRIN MCMANUS M.D.\\.b r\\ [id number] Date of Exam: 6\\.br\\D OB: 965 Age: 49 Sex: F Room/Be d: 2B12-1 Locatio n: 2BE\\.br \\ Adm: 6 Patient Status: ADM IN\\.br\\ Clinica l History : small bowel resecti on, vomitin g\\.br\\E xam # [id number]\\.br\\ Type/Ex am: RADIOLO GY-DIAG NOSTIC/ FLAT \\T\\ UPRIGHT OR DECUB ABD\\.br \\Curren t Report Status: Signed\\ .br\\His tory: Small bowel resecti on. Vomitin g.\\.br\\ Supine and upright views of the abdomen show promine nt small bowel\\. br\\flui d levels in the mid abdomen and left upper quadran t. In this\\.b r\\setti ng, small bowel obstruc tion primari ly suspect ed. There is gas and\\.br \\stool in the right colon suggest ing this may reflect early or partial \\.br\\reji wel obstruc tion. Ileus is conside red less likely given\\. br\\conf igurati on. No evidenc e for pneumop eritone um or acute bony\\.b r\\findi ngs.\\.b r\\Impre ssion: Fluid levels with modest distent ion of small bowel loops\\. br\\sugg estive of small bowel obstruc tion. Follow- up recomme nded.\\. br\\Repo rted By: KAROLINE ROJAS M.D.\\.b r\\Alissa d By: KAROLINE ROJAS M.D.\\.b r\\Alissa d Date/Ti me: 6 4 G\\T\\M EXAM MULT/COMP, SURG.PATH. DIAG.TISSUE EXAM IV Observa Value Referen Units Interpr Notes Date tion ce etation Range No No No No No No No informa informa informa informa informa informa informa tion in tion in tion in tion in tion in tion in tion in source source source source source source source data data data data data data data SINGL COMPLIC SPEC, SURG.PATH. DIAG.TISSUE EXAM V Observa Value Referen Units Interpr Notes Date tion ce etation Range &a9.3LR No No No No Jul 12 un informa informa informa informa 2015 Date: tion in tion in tion in tion in 11:15 source source source source AM 6 data data data data [facility] Page: 1Run Time: 1637 SURGICA L REPORTR un User: ARI HARPER* PATHO LOGY NAME: AUREA, ROBB S*[facility] Med Rec # [id number] 5[address]at Mirna Rawls [facility] # [id number] [facility] Sex: F Date of : 965Bowl JOHN Cardoza Physici an: AJITH LOWE [id number] Date Recd: 6 Time Recd: 1356Dat e Jai: 6 Time Jai: 1115Pat hology #: [id number] CODES: P3062 - YIMI PATH [id number] - YIMI PATH VCOPIES TO:IAN HARTMANI ANP.O.B OX [address] [place], [place] [id number] S Quang IBRAHIM MDMEDIC AL ARTS [facility] [address] [facility], [address] [facility] [place] [id number] 15P ROCEDUR ES: YIMI PATH IV, YIMI PATH VPROCED URES: YIMI PATH IV (-1546 )YIMI PATH V ( )CLINIC AL HISTORY Abnorma l uterine bleedin g, inciden lasha bowel perfora tionDIA GNOSISA . ENDOMET RIAL CURETTA GE:DYSS YNCHRON OUS ENDOMET RIUM WITH STROMAL ALTERAT IONSUGG ESTIVE OF PROGEST IN EFFECT. B. SMALL BOWEL, RESECTI ON:PERF ORATION WITH ASSOCIA LUIS HEMORRH AGE.PRO XIMAL AND DISTAL MARGINS VIABLE. [id number], [id number] OSS DESCRIP LEVON. The specime n is receive d in two contain ers. The first contain er is receive d designa tedas "EMC" and consist s of a 3.5 x 2.8 x 0.6 cm. aggrega te of hooper soft tissue admixed withblo od clot. The specime n is submitt ed in toto in fifi es A1 and A2.____ ____PAT HOLOGY REPORT& a9.3LRu n Date: 6 [facility] Page: 2Run Time: 1637 SURGICA L REPORTR un User: ARI HARPER* PATHO LOGY NAME: ROBB VILLAR*[facility] Med Rec # [id number] 582at [facility] # [id number] [facility] Sex: F Date of : 965Bowl JOHN Cardoza an: AJITH LOWE [id number] Date Recd: 6 Time Recd: 1356Dat e Jai: 6 Time Jai: 1115Pat hology #: [id number] GROSS DESCRIP TION (Contin ued)B. Receive d in formali n designa luis as "bowel" is a small segment of small bowel measuri ng3.7 cm. in length x 2.5 cm. diamete r. Central ly, there is a perfora tion in the bowel wallmea suring 1.5 x 1 cm. This lesion is greater than 1 cm. from the unorien luis proxima l anddist al margins . The perfora tion is near the mesente jigna attachm ent. The bowel segment isopene d. It is lined by folded solomon-pin k mucosa. Section s show minimal hemorrh age in thebowe l wall and adjacen t mesente ry. No lymph nodes are identif ied. Section s adjacen t to theperf oration are submitt ed in B1-B2. The proxima l and distal margins are submitt ed in B3-B4.A lso within the specime n contain er is a separat e segment of small bowel with multipl e staplel jose measuri ng 5.5 x 2 x 2 cm. In its central aspect, there is a perfora tion measuri ng 2 x1.5 cm. There are areas of hemorrh age and there are multipl e staple lines suggest cyrus ofprior anastom osis. The staple lines are removed . The specime n is seriall y section ed andmult iple represe ntative section s submitt ed in B5.MICR OSCOPIC EXAMINA LEVON-Layne . Microsc opic review was perform ed.SPEC IMENA. ENDOMET RIAL CURETTI NGSB. SMALL BOWEL-- ------- ------- ------- ------- ------- ------- ------- ------- ------- ------- ------- ------- ------S igned ___(sig nature on file)__ __ Nya Peres M.D. 6 1637--- ------- ------- ------- ------- ------- ------- ------- ------- ------- ------- ------- ------- -----__ P ATHOLOG Y REPORT EXT VEIN DUPL FUP/ADRIAN LOWER RT Observa Value Referen Units Interpr Notes Date tion ce etation Range TEXT THE No No No No Jun 23 DIAGNOS MEDICAL informa informa informa informa 2015 IS tion in tion in tion in tion in 11:09 [facility]\\ source source source source AM .br\\Dep data data data data artment of Diagnos tic Imaging \\.br\\Pa tient: ROBB VILLAR S* Unit #: [id number] 582 Ord Doctor: AJITH LOWE MD\\.br\\ [id number] Date of Exam: 6\\.br\\D OB: 965 Age: 49 Sex: F Room/Be d: Locatio n: ULT\\.br \\ Adm: 6 Patient Status: REG CLI\\.br \\Clinic al History : RLE EDEMA, RT CALF PAIN\\.b r\\Exam # [id number]\\.br\\ Type/Ex am: ULTRASO UND/ EXT VEIN DUPL FUP/ADRIAN LOWER RT\\.br\\ Current Report Status: Signed\\ .br\\Cli nical history : Right lower extremi ty edema and calf pain.\\. br\\Comp arison: None.\\. br\\Find ings: The right common femoral , superfi cial femoral and poplite al\\.br\\ veins are patent, jolie sible, positiv e color flow, Doppler signal\\ .br\\and augment ation.\\ .br\\Imp ression : No evidenc e of acute deep venous thrombo sis in the right\\. br\\lowe r extremi ty.\\.br \\Report ed By: KATHERINE HEADD.\\.b r\\Alissa d By: KATHERINE HEAD M.D.\\.b r\\Alissa d Date/Ti me: 6 1115 COMPREHENSIVE METABOLIC PANEL Observa Value Referen Units Interpr Notes Date tion ce etation Range GLUCOSE 108 70 - MG/DL Normal No Sep 23 110 informa 2014 tion in 10:30 source AM data BLOOD 23 7.0 - MG/DL High No Sep 23 UREA 22.0 informa 2014 NITROGE tion in 10:30 N source AM data CREATIN 1.9 0.6 - MG/DL High No Sep 23 INE 1.3 informa 2014 tion in 10:30 source AM data SODIUM 140 136 - MMOL/L Normal No Sep 23 145 informa 2015 tion in 10:30 source AM data POTASSI 3.7 3.5 - MMOL/L Normal No Sep 23 UM 5.1 informa 2014 tion in 10:30 source AM data CHLORID 106 98 - MMOL/L Normal No Sep 23 E 107 informa 2014 tion in 10:30 source AM data CARBON 23 21 - 32 MMOL/L Normal No Sep 23 DIOXIDE informa 2015 tion in 10:30 source AM data CALCIUM 8.6 8.5 - MG/DL Normal No Sep 23 ,SERUM 10.1 informa 2015 tion in 10:30 source AM data ALBUMIN 2.9 3.4 - G/DL Low No Sep 23 5.0 informa 2015 tion in 10:30 source AM data ALKALIN 127 46 - U/L High No Sep 23 E 116 informa 2014 PHOSPHA tion in 10:30 TASE source AM data PROTEIN 7.6 6.4 - G/DL Normal No Sep 23 ,TOTAL 8.2 informa 2014 SERUM tion in 10:30 source AM data BILIRUB 0.1 0.1 - MG/DL Normal No Sep 23 IN,TOTA 1.00 informa 2014 L tion in 10:30 source AM data SGPT(AL 14 15 - 50 U/L Low No Sep 23 T) informa 2015 tion in 10:30 source AM data SGOT( 13 15 - 37 U/L Low No Sep 23 T) informa 2014 tion in 10:30 source AM data LIPID PROFILE B Observa Value Referen Units Interpr Notes Date tion ce etation Range CHOLEST 174 0 - 200 MG/DL Normal No Sep 23 TIMOTHY informa 2014 tion in 10:30 source AM data HDL 48 35 - 60 MG/DL Normal No Feb 09 CHOLEST informa 2014 TIMOTHY tion in 10:30 source AM data LDL 78 0 - 159 MG/DL Normal LDL Feb 09 CHOLEST should 2014 TIMOTHY be 10:30 control AM led to <=100 MG/DL in the presenc e ofcoron clarence heart diease (CHD). LDL should be control led to<130 MG/DL when there are 2 or more risk factors without CHD. VLDL 48 4 - 40 MG/DL High VLDL is Feb 09 CHOLEST 2014 TIMOTHY calcula 10:30 luis, AM not directl y assayed and is invalid ifthe patient is the rare Type III Phenoty pe. COR 3.63 No No Normal Risk of Sep HEART informa informa 2014 DISEASE tion in tion in develop 10:30 RISK source source ing AM FACTOR data data Coronar y Heart Disease (From [facility] Study)M kishore FemaleR isk CHD Factor CHD Factor1 /2 Average 3.43 3.27Ave rage 4.97 4.442X Average 9.55 7.053X Average 23.99 11.04 TRIGLYC 240 30 - MG/DL High No Feb 09 ERIDES 150 2014 tion in 10:30 source AM data HEMOGLOBIN A1C Observa Value Referen Units Interpr Notes Date ti etation Range HEMOGLO 5.7 4.0 - % Normal The ADA Feb 09 BIN A1C 6.0 2014 recomme 10:26 nds AM HbA1c levels below 7% for diabete spatien ts. CBC WITH AUTO DIFF REFLEX Observa Value Referen Units Interpr Notes Date ti ce etation Range White 8.8 4.8 - X_10_3 Normal No Apr 9 Blood 10.8 inform2014 Count tion in 6:07 AM source data Red 3.35 4.20 - X_10_6 Low No Apr 9 Blood 5.40 inform2014 Count tion in 6:07 AM source data Hemoglo 9.9 12.0 - g/dL Low No Aug 9 bin 16.0 informa 2014 tion in 6:07 AM source data Hematoc 31.4 37.0 - % Low No Aug 9 rit 47.0 informa 2015 tion in 6:07 AM source data Mean 93.7 81 - 99 fL Normal No Apr 9 Corpusc informa 2014 ular tion in 6:07 AM Volume source data Mean 29.7 27 - 31 pg Normal No Apr 9 Corpusc informa 2014 ular tion in 6:07 AM Hemoglo source bin data Mean 31.7 32 - 36 g/dL Low No Apr 9 Corpusc informa 2014 ular tion in 6:07 AM Hemoglo source bin data Concent Red 13.6 11.5 - % Normal No Apr 9 Cell 14.5 informa 2014 Distrib tion in 6:07 AM ution source Width data Platele 473 130 - x10_3 High No Apr 9 t Count 400 informa 2014 tion in 6:07 AM source data Mean 7.4 6.0 - fL Normal No Apr 9 Platele 10.0 informa 2014 t tion in 6:07 AM Volume source data Neutrop 56.6 43.1 - % Normal No Apr 9 hils 74.8 informa 2014 (%) tion in 6:07 AM (Auto) source data Lymphoc 30.9 17.6 - % Normal No Apr 9 ytes 40.8 informa 2015 (%) tion in 6:07 AM (Auto) source data Monocyt 6.9 4.4 - % Normal No Apr 9 es (%) 11.0 informa 2014 (Auto) tion in 6:07 AM source data Eosinop 3.8 0.0 - % Normal No Apr 9 hils 5.8 informa 2015 (%) tion in 6:07 AM (Auto) source data Basophi 0.4 0 - 1.6 % Normal No Apr 9 ls (%) informa 2015 (Auto) tion in 6:07 AM source data Neutrop 5.0 1.8 - X_10_3 Normal No Apr 9 hils # 7.0 informa 2015 (Auto) tion in 6:07 AM source data Lymphoc 2.7 1.0 - X_10_3 Normal No Apr 9 ytes # 3.3 informa 2015 (Auto) tion in 6:07 AM source data Monocyt 0.6 0.3 - X_10_3 Normal No Apr 9 es # 0.9 informa 2015 (Auto) tion in 6:07 AM source data Eosinop 0.3 0.0 - X_10_3 Normal No Aug 9 hils # 0.5 informa 2014 (Auto) tion in 6:07 AM source data Basophi 0.0 0.0 - X_10_3 Normal If a Apr 9 ls # 0.2 manual 2014 (Auto) differe 6:07 AM ntial is indicat ed, submit order within4 8 hours" Basic Metabolic Panel (T) Observa Value Referen Units Interpr Notes Date tion ce etation Range Sodium 142 136 - mmol/L Normal No Aug 9 Level 145 informa 2014 tion in 6:37 AM source data Potassi 4.6 3.5 - mmol/L Normal No Aug 9 um 5.1 informa 2014 Level tion in 6:37 AM source data Chlorid 108.2 98 - mmol/L High No Aug 9 e Level 107 inform2014 tion in 6:37 AM source data Carbon 19 22 - 29 mmol/L Low No Aug 9 Dioxide informa 2014 Level tion in 6:37 AM source data Anion 15 8 - 16 No Normal No Aug 9 Gap informa informa 2015 tion in tion in 6:37 AM source source data data Blood 17.5 6 - 20 mg/dL Normal No Aug 9 Urea inform2014 Nitroge tion in 6:37 AM n source data Creatin 1.5 0.5 - mg/dL High No Aug 9 ine 0.9 inform2014 tion in 6:37 AM source data Creatin 37 No mL/min/ Normal An eGFR Aug 9 ine w informa 1 of <60 2015 Estimat tion in 6:37 AM ed GFR source mL/min/ data 1.73 m2 for three months or more isindic ative of chronic kidney disease . Patient s with eGFRval ues > or = 60 mL/min/ 1.73 m2 may have chronic kidneyd isease if evidenc e of persist ent protein uria is present .Refere nce: www.kdo qi.org* Units are mL/min/ 1.73m2 BUN/Cre 11.7 7.0 - No Normal No Apr 9 atinine 25.0 informa informa 2014 Ratio tion in tion in 6:37 AM source source data data Glucose 90 70 - mg/dL Normal No Aug 9 Level 100 informa 2014 tion in 6:37 AM source data Calcula 284 275 - mOsm/L Normal No Apr 9 luis 295 inform2014 Osmolal tion in 6:37 AM ity source data Calcium 8.9 8.4 - mg/dL Normal No Aug 26 Level 10.2 informa 2014 tion in 6:37 AM source data Basic Metabolic Panel (T) Observa Value Referen Units Interpr Notes Date tion ce etation Range Sodium 141 136 - mmol/L Normal No Aug 8 Level 145 inform2014 tion in 8:28 AM source data Potassi 4.3 3.5 - mmol/L Normal No Aug 25 um 5.1 inform2014 Level tion in 8:28 AM source data Chlorid 110.4 98 - mmol/L High No Aug 8 e Level 107 inform2014 tion in 8:28 AM source data Carbon 16 22 - 29 mmol/L Low No Aug 25 Dioxide informa 2014 Level tion in 8:28 AM source data Anion 15 8 - 16 No Normal No Aug 25 Gap informa informa 2015 tion in tion in 8:28 AM source source data data Blood 17.8 6 - 20 mg/dL Normal No Aug 25 Urea inform2014 Nitroge tion in 8:28 AM n source data Creatin 1.6 0.5 - mg/dL High No Aug 8 ine 0.9 informa 2014 tion in 8:28 AM source data Creatin 34 No mL/min/ Normal An eGFR Aug 8 ine w informa 1 of <60 2015 Estimat tion in 8:28 AM ed GFR source mL/min/ data 1.73 m2 for three months or more isindic ative of chronic kidney disease . Patient s with eGFRval ues > or = 60 mL/min/ 1.73 m2 may have chronic kidneyd isease if evidenc e of persist ent protein uria is present .Refere nce: www.kdo qi.org* Units are mL/min/ 1.73m2 BUN/Cre 11.1 7.0 - No Normal No Aug 8 atinine 25.0 informa informa 2014 Ratio tion in tion in 8:28 AM source source data data Glucose 85 70 - mg/dL Normal No Aug 8 Level 100 inform2014 tion in 8:28 AM source data Calcula 282 275 - mOsm/L Normal No Aug 8 luis 295 inform2014 Osmolal tion in 8:28 AM ity source data Calcium 7.8 8.4 - mg/dL Low No Aug 8 Level 10.2 informa 2014 tion in 8:28 AM source data CBC WO diff Bld Observa Value Referen Units Interpr Notes Date tion ce etation Range White 7.8 4.8 - X_10_3 Normal No Apr 8 Blood 10.8 informa 2014 Count tion in 7:58 AM source data Red 2.94 4.20 - X_10_6 Low No Aug 8 Blood 5.40 informa 2014 Count tion in 7:58 AM source data Hemoglo 8.8 12.0 - g/dL Low No Aug 8 bin 16.0 informa 2015 tion in 7:58 AM source data Hematoc 27.5 37.0 - % Low No Aug 8 rit 47.0 informa 2015 tion in 7:58 AM source data Mean 93.4 81 - 99 fL Normal No Aug 8 Corpusc informa 2015 ular tion in 7:58 AM Volume source data Mean 29.9 27 - 31 pg Normal No Aug 8 Corpusc informa 2015 ular tion in 7:58 AM Hemoglo source bin data Mean 32.0 32 - 36 g/dL Normal No Aug 8 Corpusc informa 2015 ular tion in 7:58 AM Hemoglo source bin data Concent Red 13.8 11.5 - % Normal No Aug 8 Cell 14.5 informa 2014 Distrib tion in 7:58 AM ution source Width data Platele 435 130 - x10_3 High No Aug 8 t Count 400 informa 2014 tion in 7:58 AM source data Mean 7.1 6.0 - fL Normal No Aug 8 Platele 10.0 informa 2014 t tion in 7:58 AM Volume source data ABDOMEN/PELVIS W/O CONTRAST Observa Value Referen Units Interpr Notes Date tion ce etation Range TEXT \\.br\\Pa No No No No Aug 7 DIAGNOS tient : informa informa informa informa 2015 IS tion in tion in tion in tion in 4:58 PM [facility] AUREA, source source source source ROBB data data data data 3 Visit Type : REG ER\\.br\\ : [id number] Rm/Bed :\\.br\\A ge/Sex : 49/F\\.b r\\\\.br\\ Orderin g Physici an : Mike martinez MD Tech : Ken bentley Will Candelario \\.br\\Ac cession # : [id number] Time In : 1619\\.b r\\Categ ory: CT SCAN Time Out :\\.br\\_ \\.br\\\\. br\\Date : 5\\.br\\\\ .br\\\\.b r\\\\.br\\ \\.br\\CT : ABDOMEN /PELVIS W/O CONTRAS T\\.br\\\\ .br\\IND ICATION : right back/fl ank pain\\.b r\\\\.br\\ Techniq ue: Unenhan harmeet CT images of the abdomen and pelvis were obtaine d without contras t\\.br\\a dminist ration. \\.br\\\\. br\\Comp arison study: None.\\. br\\\\.br \\Lower thorax: Lung bases are clear.\\ .br\\\\.b r\\Solid organs: The liver, gallbla dder, pancrea s, adrenal glands, and right kidney appear within\\ .br\\nor mal limits. 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 There is no evidenc e of diverti culitis . The\\.br \\append ix appears within normal limits. \\.br\\\\. br\\Pelv is: Pelvic viscera are grossly unremar kable. Urinary bladder is decompr essed.\\ .br\\\\.b r\\Bones : Unremar kable.\\ .br\\\\.b r\\Soft tissues : Small fat-con taining umbilic al hernia is demonst rated.\\ .br\\\\.b r\\Impre ssion:\\ .br\\1. 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 \\.br\\2. No evidenc e of hydrone phrosis or right nephrol ithiasi s.\\.br\\ 3. Normal appendi x.\\.br\\ \\.br\\\\. br\\\\.br \\\\.br\\\\ .br\\\\.b r\\\\.br\\ \\.br\\\\. br\\\\.br \\\\.br\\C opy to 1:\\.br\\ \\.br\\PA -C:\\.br \\\\.br\\\\ .br\\ URINE CULTURE Observa Value Referen Units Interpr Notes Date tion ce etation Range Source Name: URINE,CLEAN CATCH\\.br\\ O:ESCCO ESCHERI No No No No Aug 9 L FUNMI informa informa informa informa 2014 COLI in in in in 5:52 AM source source source source data data data data URINE Quantit No No No No Aug 9 CULTURE y informa informa informa informa 2014 ti in in in ti in 5:52 AM source source source source data data data data URINE >100,00 No No Abnorma No Aug 9 CULTURE 0 informa informa l informa 2014 CFU/ML in in in 5:52 AM source source source data data data GRAM NEGATIVE-MICROSCAN Observa Value Referen Units Interpr Notes Date ti ce etation Range Source Name: URINE,CLEAN CATCH\\.br\\ AMIKACI <=16 : No No Suscept No Aug 9 N S (S) informa informa ible informa 2014 ti in ti in ti in 5:52 AM source source source data data data AMPICIL >16 : No No No No Aug 9 DEEJAY R* informa informa informa informa 2014 ti in ti in ti in ti in 5:52 AM source source source source data data data data CEFEPIM >16 : No No No No Apr 9 E R* informa informa informa informa 2014 in ti in ti in ti in 5:52 AM source source source source data data data data CEFOTAX >32 : No No No No Apr 9 NATTY ESBL informa informa informa informa 2014 tion in tion in tion in tion in 5:52 AM source source source source data data data data CEFTAZI 4 : No No No No Apr 9 DIME ESBL informa informa informa informa 2014 tion in tion in tion in tion in 5:52 AM source source source source data data data data CEFTRIA >32 : No No No No Apr 9 XONE ESBL informa informa informa informa 2014 tion in tion in tion in tion in 5:52 AM source source source source data data data data CEFUROX >16 : No No No No Apr 9 NATTY R* informa informa informa informa 2014 tion in tion in tion in tion in 5:52 AM source source source source data data data data CEPHALO >16 : No No No No Apr 9 THIN R* informa informa informa informa 2014 tion in tion in tion in tion in 5:52 AM source source source source data data data data CIPROFL >2 : R No No Resista No Apr 9 OXACIN (R) informa informa nt informa 2014 tion in tion in tion in 5:52 AM source source source data data data GENTAMI >8 : R No No Resista No Apr 9 TIARA (R) informa informa nt informa 2014 tion in tion in tion in 5:52 AM source source source data data data LEVOFLO >4 : R No No Resista No Apr 9 XACIN (R) informa informa nt informa 2014 tion in tion in tion in 5:52 AM source source source data data data MEROPEN <=1 : S No No Suscept No Apr 9 EM (S) informa informa ible informa 2014 tion in tion in tion in 5:52 AM source source source data data data NITROFU <=32 : No No Suscept No Apr 9 RANTOIN S (S) informa informa ible informa 2014 tion in tion in tion in 5:52 AM source source source data data data PIPERAC >64 : No No No No Apr 9 ILLIN R* informa informa informa informa 2014 tion in tion in tion in tion in 5:52 AM source source source source data data data data TETRACY <=4 : S No No Suscept No Apr 9 ARCEO (S) informa informa ible informa 2015 tion in tion in tion in 5:52 AM source source source data data data TOBRAMY >8 : R No No Resista No Apr 9 TIARA (R) informa informa nt informa 2015 tion in tion in tion in 5:52 AM source source source data data data TRIMETH >2/38 : No No Resista No Apr 9 OPRIM/S R (R) informa informa nt informa 2015 ULFAMET tion in tion in tion in 5:52 AM HOXAZOL source source source E data data data PIPERAC <=16 : No No Suscept No Apr 9 ILLIN/T S (S) informa informa ible informa 2015 AZOBACT tion in tion in tion in 5:52 AM AM source source source data data data UA REFLEX TO MICROSCOPIC Observa Value Referen Units Interpr Notes Date tion ce etation Range SOURCE, CLEAN No No Normal No Apr 7 URINE CATCH informa informa informa 2015 tion in tion in tion in 4:28 PM source source source data data data Urine YELLOW No No Normal No Apr 7 Color informa informa informa 2015 tion in tion in tion in 4:00 PM source source source data data data Urine CLOUDY No No Normal No Apr 7 Appeara informa informa informa 2015 nce tion in tion in tion in 4:00 PM source source source data data data BLOOD, TRACE NEGATIV No Abnorma No Apr 7 URINE E informa l informa 2014 tion in tion in 4:00 PM source source data data Urine 6.0 4.5 - No Normal No Apr 7 pH 8.0 informa informa 2014 tion in tion in 4:00 PM source source data data Urine 1.016 1.003 - No Normal No Apr 7 Specifi 1.035 informa informa 2015 c tion in tion in 4:00 PM [place] source source data data Urine >=300 NEGATIV mg/dL Normal No Apr 7 Protein E informa 2014 tion in 4:00 PM source data Urine NEGATIV NEGATIV mg/dL Normal No Apr 7 Glucose E E informa 2014 (UA) tion in 4:00 PM source data Urine NEGATIV NEGATIV mg/dL Normal No Aug 24 Ketones E E informa 2014 tion in 4:00 PM source data NITRATE NEGATIV NEGATIV No Normal No Aug 24 ,URINE E E informa informa 2015 tion in tion in 4:00 PM source source data data Urine NEGATIV NEGATIV No Normal THE Aug 24 Bilirub E E informa COLOR 2015 in tion in OF THE 4:00 PM source URINE data CAN CAUSE A POSITIV E BILIRUB IN. UROBILI 0.2 0.0 - E.H./dL Normal No Aug 24 NOGEN,U 1.0 informa 2014 RINE tion in 4:00 PM source data LEUKOCY MODERAT NEGATIV No Abnorma No Aug 24 TE E E informa l informa 2015 ESTERAS tion in tion in 4:00 PM E source source ,URINE data data RBC,URI 0-5 0 - 5 /hpf Normal No Aug 24 NE informa 2014 tion in 4:28 PM source data WBC,URI 8-12 0 - 5 /hpf Abnorma No Aug 24 NE l informa 2014 tion in 4:28 PM source data SQUAMOU 0-5 0 - 5 /hpf Normal No Aug 24 S informa 2014 EPITHEL tion in 4:28 PM IAL source CELL,UR data BACTERI 4+ NONE /hpf Abnorma No Aug 24 A,URINE SEEN l informa 2014 REFLEX tion in 4:28 PM source data CBC WITH AUTO DIFF REFLEX Observa Value Referen Units Interpr Notes Date tion ce etation Range White 8.9 4.8 - X_10_3 Normal No Aug 24 Blood 10.8 informa 2014 Count tion in 3:23 PM source data Red 3.63 4.20 - X_10_6 Low No Aug 24 Blood 5.40 informa 2014 Count tion in 3:23 PM source data Hemoglo 10.7 12.0 - g/dL Low No Aug 24 bin 16.0 informa 2014 tion in 3:23 PM source data Hematoc 33.8 37.0 - % Low No Aug 24 rit 47.0 informa 2014 tion in 3:23 PM source data Mean 93.2 81 - 99 fL Normal No Apr 7 Corpusc inform2014 ular tion in 3:23 PM Volume source data Mean 29.6 27 - 31 pg Normal No Aug 7 Corpusc inform2014 ular tion in 3:23 PM Hemoglo source bin data Mean 31.8 32 - 36 g/dL Low No Aug 7 Corpusc inform2014 ular tion in 3:23 PM Hemoglo source bin data Concent Red 13.6 11.5 - % Normal No Aug 24 Cell 14.5 inform2014 Distrib tion in 3:23 PM ution source Width data Platele 553 130 - x10_3 High No Aug 24 t Count 400 inform2014 tion in 3:23 PM source data Mean 6.8 6.0 - fL Normal No Aug 24 Platele 10.0 inform2014 t tion in 3:23 PM Volume source data Neutrop 70.5 43.1 - % Normal No Aug 7 hils 74.8 informa 2014 (%) tion in 3:23 PM (Auto) source data Lymphoc 19.0 17.6 - % Normal No Aug 24 ytes 40.8 informa 2014 (%) tion in 3:23 PM (Auto) source data Monocyt 5.6 4.4 - % Normal No Aug 7 es (%) 11.0 informa 2014 (Auto) tion in 3:23 PM source data Eosinop 2.8 0.0 - % Normal No Aug 7 hils 5.8 informa 2014 (%) tion in 3:23 PM (Auto) source data Basophi 0.3 0 - 1.6 % Normal No Aug 7 ls (%) informa 2014 (Auto) tion in 3:23 PM source data Neutrop 6.2 1.8 - X_10_3 Normal No Aug 7 hils # 7.0 informa 2015 (Auto) tion in 3:23 PM source data Lymphoc 1.7 1.0 - X_10_3 Normal No Aug 7 ytes # 3.3 informa 2015 (Auto) tion in 3:23 PM source data Monocyt 0.5 0.3 - X_10_3 Normal No Aug 7 es # 0.9 informa 2015 (Auto) tion in 3:23 PM source data Eosinop 0.3 0.0 - X_10_3 Normal No Aug 7 hils # 0.5 informa 2015 (Auto) tion in 3:23 PM source data Basophi 0.0 0.0 - X_10_3 Normal If a Apr 7 ls # 0.2 manual 2015 (Auto) differe 3:23 PM ntial is indicat ed, submit order within4 8 hours" Comprehensive Metabolic Panel Observa Value Referen Units Interpr Notes Date tion ce etation Range Sodium 139 136 - mmol/L Normal No Apr 7 Level 145 inform2014 tion in 3:39 PM source data Potassi 4.1 3.5 - mmol/L Normal No Apr 7 um 5.1 inform2014 Level tion in 3:39 PM source data Chlorid 103.2 98 - mmol/L Normal No Apr 7 e Level 107 inform2014 tion in 3:39 PM source data Carbon 19 22 - 29 mmol/L Low No Apr 7 Dioxide inform2014 Level tion in 3:39 PM source data Anion 17 8 - 16 No High No Apr 7 Gap informa informa 2015 tion in tion in 3:39 PM source source data data Blood 19.8 6 - 20 mg/dL Normal No Apr 7 Urea inform2014 Nitroge tion in 3:39 PM n source data Creatin 1.9 0.5 - mg/dL High No Apr 7 ine 0.9 informa 2014 tion in 3:39 PM source data Creatin 28 No mL/min/ Normal An eGFR Apr 7 ine w informa 1 of <60 2015 Estimat tion in 3:39 PM ed GFR source mL/min/ data 1.73 m2 for three months or more isindic ative of chronic kidney disease . Patient s with eGFRval ues > or = 60 mL/min/ 1.73 m2 may have chronic kidneyd isease if evidenc e of persist ent protein uria is present .Refere nce: www.kdo qi.org* Units are mL/min/ 1.73m2 BUN/Cre 10.3 7.0 - No Normal No Apr 7 atinine 25.0 informa informa 2014 Ratio tion in tion in 3:39 PM source source data data Glucose 116 70 - mg/dL High No Apr 7 Level 100 informa 2014 tion in 3:39 PM source data Calcula 281 275 - mOsm/L Normal No Apr 7 luis 295 inform2014 Osmolal tion in 3:39 PM ity source data Calcium 8.9 8.4 - mg/dL Normal No Aug 24 Level 10.2 inform2014 tion in 3:39 PM source data Total 0.2 0.0 - mg/dL Normal No Aug 24 Bilirub 1.2 inform2014 in tion in 3:39 PM source data Asparta 24 0 - 32 IU/L Normal No Aug 24 te 2014 Amino tion in 3:39 PM Transf source (AST/SG data OT) Alanine 18 0 - 33 IU/L Normal No Aug 242014 Aminotr tion in 3:39 PM ansfera source se data (ALT/SG PT) Total 7.6 6.4 - g/dL Normal No Aug 24 Protein 8.3 2014 tion in 3:39 PM source data Albumin 3.7 3.5 - g/dL Normal No Aug 24 5.2 2014 tion in 3:39 PM source data Globuli 3.8 1.5 - gm/dL Normal No Aug 24 n 3.8 2014 tion in 3:39 PM source data Albumin 1.0 1.1 - No Low No Aug 24 /Globul 1.8 informa inform 2015 in tion in tion in 3:39 PM Ratio source source data data Alkalin 97 35 - IU/L Normal No Aug 24 e 105 2014 Phospha tion in 3:39 PM tase source data Lipase Observa Value Referen Units Interpr Notes Date tion ce etation Range Lipase 27 13 - 60 u/L Normal No Aug 242014 tion in 3:39 PM source data XR CERVICAL SPINE AP LATERAL AND ODONTOID Observa Value Referen Units Interpr Notes Date ti ce etation Range EXAMINA No No No No May 24 TION: informa informa informa informa 2015 Three tion in tion in tion in tion in 3:15 PM Views source source source source of the data data data data Cervica l Spine dated 015.\\.b r\\\\.br\\ HISTORY : Numbnes s of the fingers of the left hand.\\. br\\\\.br \\COMPAR PAUL: None.\\. br\\\\.br \\FINDIN GS: There is no prevert ebral soft tissue swellin g. The vertebr al\\.br\\ body heights are intact. There is minor retroli sthesis of C3 on C4.\\.br \\There are mild endplat e osteoph ytes at C4-5 and C5-6 without loss of disc\\.b r\\space height. There is mild bilater al uncover tebral arthros is at C6-7 on\\.br\\ the left greater than right and mild left uncover tebral arthros is at C4-5.\\. br\\The C1-2 articul ation and odontoi d are intact. \\.br\\\\. br\\IMPR ESSION: Mild degener ative changes from C4-5 through C6-7 with minor\\. br\\retr olisthe sis of C3 on C4.\\.br \\\\.br\\J leanna luna MD. XR CHEST PA AND LATERAL Observa Value Referen Units Interpr Notes Date tion ce etation Range EXAMINA No No No No Sep 15 TION: informa informa informa informa 2014 PA and tion in tion in tion in tion in 4:37 PM Lateral source source source source data data data data Radiogr aphs of the Chest Dated 014.\\.b r\\\\.br\\ CLINICA L HISTORY : 48-year -old female with cough. Positiv e smoking \\.br\\hi story.\\ .br\\\\.b r\\HARISH RISON: No prior studies are availab le for compari son.\\.b r\\\\.br\\ FINDING S: No pulmona ry infiltr ate is identif ied. No pleural \\.br\\ef fusion or pneumot horax is seen. Heart size is normal. Fullnes s with\\.b r\\lobul ar contour of the left hilum. No displac ed rib fractur es are\\.br \\identi fied.\\. br\\\\.br \\IMPRES IRENE:\\. br\\1. No acute radiogr aphic abnorma lities are identif ied in the chest.\\ .br\\2. Fullnes s with lobular contour of the left hilum. CT chest is\\.br\\ recomme nded for further evaluat ion.\\.b r\\\\.br\\ Long Avery M.D.
--- OUTSIDE RECORDS SUMMARY | 2017-03-01 10:38 | External Medical Summary Rpt ---
Author Author OLIVERLILLY Waterman, [employer] Organization [employer] Address Unknown Phone Unavailable Payers Section Payer Plan Name Group ID Member ID Coverage Coverage Start End Date Date [employer] 1810 [id number] No No Claims 00 informati informati Office [...] Type : REG CLI\\.br \\ : [id number] Rm/Bed :\\.br\\A ge/Sex : 51/F\\.b r\\\\.br\\ Orderin g Physici an : Betina Mittal DO Tech : Maye Bragg\\.b r\\Acces irene # : [id number] Time In : 927\\.b r\\Categ ory: [...] Type : REG CLI\\.br \\ : [phone] [id number] Rm/Bed :\\.br\\A ge/Sex : 51/F\\.b r\\\\.br\\ Orderin g Physici an : Betina Mittal DO Tech : Miley Toribio\\ .br\\Acc ession # : [id number] Time In :\\.br\\C ategory : ULTRASO [...] \\.br\\Pa tient: AUREAROBB WHITE S* Unit #: [id number] Ord Doctor: BIRGIT BRIGGS\\.b r\\ [id number] Date of Exam: 6\\.br\\D OB: 965 Age: [...] uterus. \\.br\\Re ported By: KATHERINE HEAD M.D.\\.b r\\Alsisa d By: KATHERINE HEAD M.D.\\.b r\\Alissa d [...] Imaging \\.br\\Pa tient: ROBB VILLAR* Unit #: [id number] Ord Doctor: DARRIN MCMANUS M.D.\\.b r\\ [id number] Date of Exam: 6\\.br\\D OB: 965 Age: [...] \\.br\\Pa tient: ROBB VILLAR S* Unit #: [id number] Ord Doctor: YUNG SALCEDO M.D.\\.b r\\ [id number] Date of Exam: 6\\.br\\D OB: 965 Age: [...] <150 = Normal1 50-199 = Borderl ine [id number] -499 = High>50 0 = Very High [...] \\.br\\Pa tient: ROBB VILLAR S* Unit #: [id number] Ord Doctor: DARRIN MCMANUS M.D.\\alton r\\ [id number] Date of Exam: 6\\.br\\D OB: 965 Age: [...] Imaging \\.br\\Pa tient: ROBB VILLAR* Unit #: [id number] Ord Doctor: DARRIN MCMANUS M.D.\\.b r\\ [id number] Date of Exam: 6\\.br\\D OB: 965 Age: [...] \\.br\\Pa tient: ROBB VILLAR S* Unit #: [id number] 582 Ord Doctor: GUTIERREZ JAMES\\.br\\ [id number] Date of Exam: 6\\.br\\D OB: 965 Age: [...] Imaging \\.br\\Pa tient: ROBB VILLAR* Unit #: [id number] Ord Doctor: DARRIN MCMANUS M.D.\\.b r\\ [id number] Date of Exam: 6\\.br\\D OB: 965 Age: [...] \\.br\\Pa tient: ROBB VILLAR S* Unit #: [id number] Ord Doctor: DARRIN MCMANUS M.D.\\.b r\\ [id number] Date of Exam: 6\\.br\\D OB: 965 Age: [...] \\.br\\Pa tient: ROBB VILLAR S* Unit #: [id number] 582 Ord Doctor: DARRIN MCMANUS M.D.\\.b r\\ [id number] Date of Exam: 6\\.br\\D OB: 965 Age: [...] source AM 6 data data data data [facility] Page: 1Run Time: 1637 SURGICA L REPORTR un User: ARI HARPER* PATHO LOGY NAME: AUREA, ROBB S*[facility] Med Rec # [id number] 582at Mirna Rawls [facility] # [id number] [facility] Sex: F Date of : 965Bowl JOHN Cardoza Physici an: AJITH LOWE [id number] Date Recd: 6 Time Recd: 1356Dat e Jai: 6 Time Jai: 1115Pat hology #: [id number] CODES: P3062 - YIMI PATH [id number] - YIMI PATH VCOPIES TO:IAN HARTMANI ANP.O.B OX [address] [place], [place] [id number] S Quang IBRAHIM MDMEDIC AL ARTS [facility] [address] [facility], [address] [facility] [place] [id number] 15P ROCEDUR ES: YIMI PATH IV, YIMI [...] HEMORRH AGE.PRO XIMAL AND DISTAL MARGINS VIABLE. [id number], [id number] OSS DESCRIP LEVON. The specime n is [...] ____PAT HOLOGY REPORT& [id number] n Date: 6 [facility] Page: 2Run Time: 1637 SURGICA L REPORTR un User: ARI HARPER* PATHO LOGY NAME: ROBB VILLAR*[facility] Med Rec # [id number] 582at [facility] # [id number] [facility] Sex: F Date of : 965Bowl JOHN Cardoza an: AJITH LOWE [id number] Date Recd: 6 Time Recd: 1356Dat e [...] \\.br\\Pa tient: ROBB VILLAR S* Unit #: [id number] 582 Ord Doctor: AJITH LOWE MD\\.br\\ [id number] Date of Exam: 6\\.br\\D OB: 965 Age: [...] By: KATHERINE HEADD.\\.b r\\Alissa d By: KATHERINE HAED M.D.\\.b r\\Alissa d Date/Ti me: 6 1115 [...] data data Coronar y Heart Disease (From [facility] Study)M kishore FemaleR isk CHD Factor CHD [...] Visit Type : REG ER\\.br\\ : [phone] [id number] Rm/Bed :\\.br\\A ge/Sex : 49/F\\.b r\\\\.br\\ Orderin g Physici an : Mike martinez MD Tech : Ken bentley Will Candelario \\.br\\Ac cession # : [id number] Time In : 1619\\.b r\\Categ ory: [...] c tion in tion in 4:00 PM [place] source source data data Urine >=300 NEGATIV [...]
== END 2017-02-23 01:29 | disposition home or self-care (01) ==
LOC: ER 20:42 → UTC 20:58 → ER 20:58
PROVIDERS: Emergency Medicine
DX: M79.602 Pain in left arm (principal); R79.1 Abnormal coagulation profile; E11.22 Type 2 diabetes mellitus with diabetic chronic kidney disease; F17.210 Nicotine dependence, cigarettes, uncomplicated; J44.9 Chronic obstructive pulmonary disease, unspecified; I12.0 Hypertensive chronic kidney disease with stage 5 chronic kidney disease or end stage renal disease; N18.6 End stage renal disease; Z99.2 Dependence on renal dialysis

== ENCOUNTER → 2017-02-23 | Outpatient (CLI) | payer MEDICARE ==
[~2017-02-23] MED LIST: VICODIN 5/500 T1 TAB PO; VOLTAREN75 MG PO
--- NOTE | 2017-02-23 13:28 | CARDIOVASCULAR REPORT ---
"Venous Exam Indications: 729.5 Pain in limb. IMPRESSIONS 1. There is no evidence of significant reflux. 2. No evidence of deep or superficial vein thrombosis involving the veins of the left upper extremity Left upper extremity venous duplex. Doppler flow study including spectral analysis, color and hooper scale imaging. Location: Vascular laboratory. Patient status: Outpatient. Tables: Venous flow and imaging: + + + |Location |Flow properties | + + + |Left internal jugular|Normal phasicity; spontaneous; compressible | + + + |Left subclavian |Normal phasicity; spontaneous; normal | | |augmentation; compressible | + + + |Left axillary |Normal phasicity; spontaneous; normal | | |augmentation; compressible | + + + |Left brachial |Normal phasicity; spontaneous; normal | | |augmentation; compressible | + + + |Left cephalic |Normal phasicity; spontaneous; normal | | |augmentation; compressible | + + + |Left basilic |Normal phasicity; spontaneous ; normal | | |augmentation; compressible | + + + |Left radial |Compressible | + + + |Left ulnar |Compressible | + + + (Report amended ) Electronically signed by: Jeremiah Rojas [id number]"
== END ==
LOC: RT 12:49
DX: M79.602 Pain in left arm (principal); R22.32 Localized swelling, mass and lump, left upper limb; R79.1 Abnormal coagulation profile